=== PATIENT | female | born 1935 | race Caucasian/White ===

== ENCOUNTER 2017-01-30 01:13 | Inpatient (IN) | payer OTHER ==
[~2017-01-30] VITALS: Ht 165.1 cm; Wt 76.0 kg
--- NOTE | 2017-01-30 01:45 | NUR ---
DR COHEN AT BEDSIDE FOR MSR
--- NOTE | 2017-01-30 01:51 | NUR ---
PT BIB [facility] FROM [facility] FOR ALOC X 30 MIN CAUSTIC PREPARER, PER MEDIC PT NORMALLY AAOX4 AND AMBULATORY. 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 PER MEDIC PT IS DNR AND HAS PAPERWORK BUT IT IS ALLEGEDLY INVAILD DUE TO PTS NAME NOT BEING ON THERE. PT WAS TRANSFERED TO [facility], CHANGING INTO GOWN, PLACED ON FULL MONITORS AND SEPSIS PROTOCOL INITIATED, DR COHEN MADE AWARE OF SEPSIS CRITERIA BEING MET.
--- NOTE | 2017-01-30 01:51 | NUR ---
PER MEDIC PT HAD 2 EPISODES OF VOMITING ROUTE SERVICE REPRESENTATIVE WITH COFFEE GROUND EMESIS.
--- NOTE | 2017-01-30 01:55 | NUR ---
OLD CARROLL CATH D/C'D DUE TO THE [facility] DATE AND TIME IT WAS PLACED ALONG WITH THE AMOUNT AND COLOR OF URINE IN BAG. 2 IV SITES ESTABLISED, PT DID NOT RESPOND TO PAINFUL STIMULI DURING IV START.
--- NOTE | 2017-01-30 02:07 | NUR ---
PT OFF UNIT TO CT [facility]IA [facility], BEFORE PT LEFT, PT STARTED RESPONDING VERBALLY TO QUESTIONS BUT COULD ON REMEMBER HER NAME.
--- NOTE | 2017-01-30 02:22 | NUR ---
LAB AT BEDSIDE
[2017-01-30 02:33] LABS: BASOPHIL % 0.1 % (0-2); PLATELET COUNT 183 x10^3mcL (130-400)
--- NOTE | 2017-01-30 02:35 | NUR ---
YANIQUE Grewal FROM [facility] CALLED TO VERIFY THAT DR COHEN REC'D CRITICAL CT FINDINGS. CT STATES THAT THERE IS A MASS ARISING FROM THE LEFT-SIDED CAUDATE HEAD THAT HEASURES 1.0X1.4 CM AND 0.[address] COHEN MADE AWARE.
[2017-01-30 02:39] LABS: RED CELL DISTRIBUTION WIDTH 16.6 % (11.5-14.5)
--- NOTE | 2017-01-30 02:53 | NUR ---
PTS SON AT BEDSIDE AND UPDATED ON PT STATUS.
[2017-01-30 02:55] LABS: ALKALINE PHOSPHATASE 62 U/L (46-116); ALT/SGPT 21 U/L (14-59); AST/SGOT 30 U/L (15-37); BILIRUBIN TOTAL 0.87 mg/dL (0.20-1.00); CARBON DIOXIDE 19.3 mmol/L (21-32); CHLORIDE SERUM 104 mmol/L (98-107); CREATININE SERUM 2.4 mg/dL (0.6-1.0); GLUCOSE SERUM 110 mg/dL (74-106); POTASSIUM SERUM 3.9 mmol/L (3.5-5.1); SODIUM SERUM 137 mmol/L (136-145)
[2017-01-30 03:00] LABS: ALBUMIN 2.5 g/dL (3.4-5.0)
[2017-01-30 03:02] LABS: CK-MB 0.5 ng/mL (0-3.6)
[2017-01-30] MEDS ORDERED: AUG250L PO (03:07)
[2017-01-30] MEDS ORDERED: LIPITOR40 MG PO (03:07)
[2017-01-30] MEDS ORDERED: ALENDRONATE SOD70 M2 PO (03:07)
[2017-01-30] MEDS ORDERED: PHARMASSURE VI500 MG PO (03:08)
[2017-01-30] MEDS ORDERED: MASON NATURAL1000 IU PO (03:08)
[2017-01-30 03:21] LABS: UA SPECIFIC GRAVITY 1.015 (1.005-1.035); microscopic required? YES; urine erythrocyte 3+ (NEGATIVE)
--- NOTE | 2017-01-30 03:34 | NUR ---
PT IV ANTIBIOTICS INFUSING FOR UTI
--- NOTE | 2017-01-30 03:35 | NUR ---
[facility] WOULD LIKE TO BE CONTACTED WITH ANY UPDATES REGUARDING PT STATUS AT
--- NOTE | 2017-01-30 04:22 | NUR ---
REPORT GIVEN TO ELIZABETH TO ASSUME CARE OF PT, ELIZABETH MADE AWARE THAT THE LAST OF THE NS FLUID RESUSCITATION BOLUS'S WILL BE COMING UP WITH THE PT AND SHE WILL NEED TO RECORD THE LAST BP, ELIZABETH VERBALIZED UNDERSTANDING.
[2017-01-30 04:40] LABS: MAGNESIUM 1.7 mg/dL (1.8-2.4); PHOSPHOROUS 3.5 mg/dL (2.5-4.9)
[2017-01-30 04:47] LABS: T3 TOTAL 0.79 ng/mL
[2017-01-30 04:48] LABS: CHOLESTEROL/HDL RATIO 1.4
[2017-01-30 04:56] LABS: FREE T4 1.58 ng/dL (0.76-1.46); FREE THYROXINE INDEX 3.7 ug/dL (1.4-4.5); T4(THYROXINE) 9.4 ug/dL (4.7-13.3)
[2017-01-30 05:08] VITALS: BP 126/76
--- NOTE | 2017-01-30 05:45 | NUR ---
RECEIVED PT FROM ER VIA [facility], ACCOMPANIED BY ER NURSE. ADMITTED WITH DIAGNOSIS OF SEPSIS AND ALOC. AWAKE, CONFUSED AND DROWSY. RECEIVED PT WITH 3RD IV, NS BAG OF FLUID RESUSCITATION BOLUS, STARTED PT ON SEPSIS PROTOCOL PER ER NURSE. ABOUT 500MLS LEFT IN THE BAG, VITAL SIGNS ON ARRIVAL SHOWS TEMP. 98.0, P. 97, RESP. 19, B/P 126/52. SAT. 96% ON 02 AT 2L/MIN. IV REMAINING BALANCE INFUSED AND B/P RECHECK SHOWS 92/49, RECHECK AFTER 5MINS SHOWS 72/37. (46). 78/41 WITH MAP AT 52. PT LETHARGIC AT THIS TIME, BUT AROUSABLE. PLACED ON TELE . # 34, SR/ST ON THE MONITOR. DR CORNEJO NOTIFIED. DR CORNEJO AT PT,S BEDSIDE ASSESSING PT. CARROLL CATH INTACT, DRAINING CABRAL RED COLOR URINE, NO BLOOD CLOTS NOTED. PRESSURE ULCER TO SACRAL AREA NOTED, PICTURE TAKEN AND DOCUMENTED. PT DENIES PAIN OR ANY DISCOMFORT AT THIS TIME. SCDS APPLIED TO BLE. CALL LIGHT WITHIN REACH. WILL CONTINUE TO MONITOR.
--- NOTE | 2017-01-30 06:05 | NUR ---
RECEIVED PT VIA RTULARE. PT IS NONVERBAL, OPENS EYES TO VERBAL/TACTILE STIMULUS. PT FOLLOWS COMMANDS BY SQUEEZING HANDS BILATERALLY, UNABLE TO MAKE NEEDS KNOWN. PT IS ON 2L NC, LABORED BREATHING NOTED, SYMMETRICAL CHEST EXPANSION. S1/S2 HEART TONES DISTANT ON AUSCULTATION, NO S/S OF CHEST PAIN NOTED. NO EDEMA NOTED, CAP REFILL IMMEDIATE, PULSES MODERATE BUE/BLE, NO EDEMA NOTED. ABDOMEN SOFT/ROUND, NO BM NOTED. F/C IN PLACE DRAINING TO GRAVITY, CABRAL RED URINE NOTED. NO VAGINAL DISCHARGE NOTED. SKIN WARM/DRY, IV IN PLACE TO BUE BILATERALLY, NS INFUSING AT NS AT 150 ML/HR. SMALL PRESSURE ULCER TO SACRUM NOTED. WILL MONITOR PT CLOSELY.
--- NOTE | 2017-01-30 06:12 | NUR ---
RECEIVED PT REPORT FROM MARKO JOHNSON. QUESTIONS AND CONCERNS ADDRESSED BEDSIDE.
--- NOTE | 2017-01-30 06:35 | NUR ---
DR. ARANGO AT BEDSIDE, QUESTIONS AND CONCERNS ADDRESSED.
--- NOTE | 2017-01-30 06:44 | NUR ---
PT STARTED ON LEVOPHED AT 2 MCG/MIN. WILL MONITOR CLOSELY.
--- NOTE | 2017-01-30 07:10 | NUR ---
RECEIVED REPORT FROM [facility] SHIFT MARKO SABILLON. ALL QUESTIONS AND CONCERNS ADDRESSED AT THIS TIME. WILL ASSUME ALL CARE.
--- NOTE | 2017-01-30 07:30 | NUR ---
PT IS SLEEPING BUT EASILY AROUSABLE TO VERBAL STIMULI AND OPEN EYES TO VERBAL STIMULI, SPEECH IS GARBLED BUT PT IS ABLE TO FOLLOW COMMANDS. PT IS ORIENTED TO SELF AND PLACE. PT BUL/BLL DIM. PT ON 2L NC. PT ABD IS SOFT, FLAT, SYMMETRICAL AND NONTENDER TO PALPATION. PT HAS CARROLL CATH IN PLACE DRAINING TO GRAVITY CABRAL RED URINE, BLOOD NOTED, NO VAGINAL DISCHARGE NOTED. PT HAS TRACE EDEMA TO BLE, SCDS IN PLACE, ALL PULSES PALPABLE AND STRONG. PT ON EXTENSION FORESTER AND WITHIN CLOSE VIEW OF NURSES STATION. WILL CONTINUE TO MONITOR PT AT THIS TIME.
[2017-01-30 07:59] VITALS: BP 99/61
--- NOTE | 2017-01-30 08:42 | NUR ---
AT BEDSIDE. UPDATES PROVIDED.
--- NOTE | 2017-01-30 09:50 | NUR ---
PATIENT'S DAUGHTER, MYSELF AND DR ARANGO AT BEDSIDE. DR ARANGO SPOKE WITH YEMI LAWSON REGARDING POC AND CODE STATUS. A "POLST" WAS INITIATED LAST MONTH (12/2016) AT [facility] HOWEVER A PATIENT NAME WAS NOT INDICATED ON THE FORM SUPPLIED TO [facility]. DR ARANGO REVIEWED CODE STATUS AT THIS TIME AND FAMILY HAS DECIDED TO MAKE PATIENT A FULL DNR- INCLUDING NO PRESSORS. PRIMARY RN TEDDY MADE AWARE. DNR FORM COMPLETED AND PLACED IN CHART.
[2017-01-30 13:03] VITALS: BP 98/54
--- NOTE | 2017-01-30 13:15 | NUR ---
Initial Nutrition Assessment Dx: Sepsis PMHx: HTN, HLD, Right sacral pressure ulcer PSHx: Surgical scar indicative of R. Total hip Labs: (01/30) BH, BUN:63H, Cr:2.4H, Alb:2.5L, Ca:8L, HDL:714H, Lipase:53L, M.7L, A1c:5.9H, Lactic acid:2.3H, WBC:15.5H Meds: Colace, Lactinex, Levophed, Mg sulfate, Zofran Diet: Mechanical soft Reg PO Intake:No intake recorded Ht:65 in, 5'5" Wt: 168#,76.4kg BMI: 28kg/m2 (overweight) IBW: 125#,57kg %IBW: 134% UBW:155-160# per pt's daughter Age:81 y/o female Food Allergies:NKFA Skin: stage III sacral pressure area. Lance:13 Edema:trace to BLE GI: bowel sounds active Last BM: no BM noted Pt admitted with severe sepsis secondary to UTI and metabolic encephalopathy with acute dementia exacerbation secondary to sepsis. CT of the head without contrast showed a partiallu calcified nodule arising from the left sided caudate head, per H&P. Per progress note 01/30, pt is A&) x3 with no c/o pain at this time and pt is aware that she is in the hospital for IV antibiotics for her UTI. Pt's daughter was contacted and per daughter, pt does not want chest compressions, artifical ventilation or tube feeding. Per RN, pt was just advanced to PO diet due to improved mentation. During visit, observed pt laying in bed with daughter at bedside. Pt is more alert and was happy to be advanced to PO diet and had no c/o N/V/D/C. Spoke to Dr. Kemp about adding MVI, Vit C and Zinc to help with wound healing and he is agreeable with recommendations. Problem with: N:No V:No D: No C:No Problems with: Chewing: yes, pt states she has trouble chewing foods due to dentures Swallowing: No Current appetite: pt was just advanced to PO diet this afternoon, reports to being hungry. Recent wt change:+8# %wt change:-5% Vitamin/Supplement use:protein supplement but cannot recall the name Special diet at home: Regular mechanical soft Physical activity: No Education: Provided verbal diet education to both pt and daughter on the importance of adding MVI, Vit C and Zinc to help promote wound healing to pts stage III sacral pressure ulcer. Both pt and daughter were receptive to education and recommendations. Estimated Nutritional Needs Based on ideal body weight 57kg Energy: 1710-1995kcal/d (30-35kcal/kg for sepsis and stage III pressure ulcer) Protein: 85-114 g/d (1.5-2.0g/kg for sepsis and stage III pressure ulcer) Fluid: 1710-1995ml/d (30-35kcal/ml) or per doctor Nutrition Diagnosis 1. Increased nutrient needs related to increased metabolic demands as evidenced by elevated WBC:15.5, Lactic acid: 2.3 and pt with sepsis. 2. Increased nutrient needs related to altered skin integrity as eviedenced by Stage III sacral pressure ulcer. Intervention 1.Recommend Theragran, Vit C 500mg BID and Zinc Sulfate 220mg 1x/day for wound healing. 2. Recommend continue with current diet order of mechanical soft diet Monitor/Evaluate Goal: PO intake to meet >75% est needs and wound healing. Monitor: PO intake, GI function and skin integrity F/U in 3-5 days as moderate risk:02/02-
--- NOTE | 2017-01-30 13:17 | NUR ---
1.Recommend Theragran, Vit C 500mg BID and Zinc Sulfate 220mg 1x/day for wound healing. 2. Recommend continue with current diet order of mechanical soft diet
--- NOTE | 2017-01-30 14:39 | NUR ---
REPORT GIVEN TO [facility]ST RN ELICEO, ALL QUESTIONS AND CONCERNS ADDRESSED AT THIS TIME. PT TO GO TO ROOM 207B. WILL ENDORSE ALL CARE TO ELICEO UPON ARRIVAL.
--- NOTE | 2017-01-30 14:53 | NUR ---
AND AT BEDSIDE FOR WOUND DEBRIDEMENT. OPTIFOAM AND THERAHONEY APPLIED AT THIS TIME. SEE PICTURES IN CHART.
--- NOTE | 2017-01-30 15:37 | NUR ---
RECEIVED PATIENT FROM ICU. PLACED ON TELE #34. CALL LIGHT WITHIN REACH WITH BED ALARM IN PLACE.
[2017-01-30 15:49] VITALS: BP 100/51
--- NOTE | 2017-01-30 16:00 | NUR ---
PATIENT ALERT, ORIENTED SELF AND PLACE. S/P PF DEBRIDMENT OF RT SACRAL PRESSURE ULCER TODAY. DENIED PAIN. TELE#34: SR; HR = 84. B/P = 100/51. MAP =66. O2 SAT 98% ON 3L/MIN VIA N/C. CARROLL PATENT WITH JUAN PABLO , CLOUDY URINE. 120CC OF URINE OUTPUT MEASURED. DRSG TO RT SACRAL AREA INTACT. IVF OF NS 150CC/HR INFUSING WELL TO RAC. IVHL'S TO LAC. BOTH IV SITE CLEAN. CALL LIGHT IN REACH. CONTINUE MONITOR.
[2017-01-30 17:20] VITALS: BP 100/51
--- NOTE | 2017-01-30 18:18 | NUR ---
ALERT, ORIENTED TO PERSON AND PLACE. ABLE TO FEED SELF DINNER. TOLERATED SOFT DIET WELL. NO N/V. DENIED PAIN. IVF OF NS 150CC/HR CONTINUE. ENDORSED CARE TO [facility] NURSE.
--- NOTE | 2017-01-30 19:50 | NUR ---
REC'D FROM DAY NURSE. PT RESTING IN BED. TURNED TO L SIDE. AAOX4, SPEECH CLEAR, FOLLOWS COMMANDS. SOMETIMES SLOW TO RESPOND. PERRLA. ON TELE 34. DENIES CP, DIZZINESS, OR PALPITATIONS. DENIES RESP DISTRESS OR SOB. BREATHING EVEN/UNLABORED ON 3L O2 VIA NC, SPO2 96%. TRACE EDEMA TO BLE. TURNED TO L SIDE AND BLE ELEVATED WITH PILLOWS. DENIES ABD PAIN, TENDERNESS, OR N/V. BOWEL SOUNDS ACTIVE. STATES SHE DOES NOT KNOW THE LAST TIME SHE HAD A BM. CARROLL IN PLACE DRAINING URINE TO GRAVITY. GEN WEAKNESS WITH GREATER WEAKNESS TO BLE. R SACRAL ULCER S/P DEBRIDEMENT. WILL TURN Q2HR. MODERATE SANGUINEOUS DRAINAGE, DRESSING CHANGED. DENIES PAIN OR DISCOMFORT AT THIS TIME. IV TO FRA PATENT AND INFUSING. IV TO LAC FLUSHED AND PATENT, SALINE LOCKED. SITES WNL. CALL LIGHT WITHIN REACH, BED AT LOWEST POSITON, BED ALARM ON. WILL CONTINUE TO MONITOR.
--- NOTE | 2017-01-30 21:52 | NUR ---
DR. JENSEN MADE AWARE OF POSITIVE BLOOD CULTURE AND MG 1.7
[2017-01-30 21:59] VITALS: BP 100/52
--- NOTE | 2017-01-30 23:00 | NUR ---
PT RESTING IN BED. WOKEN UP TO CHANGE POSITION. TURNED TO R SIDE. MADE COMFORTABLE IN BED. NO COMPLAINTS AT THIS TIME. CALL LIGHT WITHIN REACH, BED AT LOWEST POSITION, BED ALARM ON. WILL CONTINUE TO MONITOR.
--- NOTE | 2017-01-31 03:43 | NUR ---
PT RESTING IN BED WITH EYES CLOSED. NO SIGNS OF DISTRESS NOTED. BREATHING EVEN/UNLABORED ON 3L O2 VIA NC. CALL LIGHT WITHIN REACH, BED AT LOWEST POSITION. WILL CONTINUE TO MONITOR.
[2017-01-31 06:31] VITALS: BP 104/52
--- NOTE | 2017-01-31 06:48 | NUR ---
PT RESTING IN BED. NO COMPLAINTS AT THIS TIME. PT AAOX4. REPOSITIONED. DRESSING TO R SACRUM CDI. NO BM TONIGHT. CARROLL CARE COMPLETED. VSS. CALL LIGHT WITHIN REACH, BED AT LOWEST POSITION, BED ALARM ON. WILL CONTINUE TO MONITOR.
[2017-01-31 06:50] LABS: PLATELET COUNT 134 x10^3mcL (130-400)
[2017-01-31 06:53] LABS: BASOPHIL % 0 % (0-2); RED CELL DISTRIBUTION WIDTH 16.6 % (11.5-14.5)
[2017-01-31 07:21] LABS: CALCIUM 7.4 mg/dL (8.5-10.1); CARBON DIOXIDE 20.1 mmol/L (21-32); CHLORIDE SERUM 112 mmol/L (98-107); CREATININE SERUM 0.7 mg/dL (0.6-1.0); GLUCOSE SERUM 92 mg/dL (74-106); MAGNESIUM 2.5 mg/dL (1.8-2.4); PHOSPHOROUS 3.1 mg/dL (2.5-4.9); POTASSIUM SERUM 3.5 mmol/L (3.5-5.1); SODIUM SERUM 142 mmol/L (136-145)
--- NOTE | 2017-01-31 08:00 | NUR ---
ALERT/AWAKE. ORIENTED TO PERSON AND PLACE. ABLE TO MADE NEEDS KNOWN. BREATHING SOUND DIMINISED BERKLEY. O2 SAT 95% ON 3L VIA N/C. NO SOB. TELE#34 = SR; HR = 75. DRSG TO SACRAL AREA INTACT. C/O MILD PAIN ON SACRAL AREA ON , REFUSED PAIN MEDS. IVF OF NS 60CC/HR TO RFA PER ORDER. IVHL'D TO LAC. GENERAL WEAKNESS, BED BOUND. CARROLL CATH PATENT WITH YELLOW CLOUDY URINE OUTPUT. CALL LIGHT IN REACH.
--- NOTE | 2017-01-31 08:15 | NUR ---
RESIDENTS MADE MORING ROUND.
[2017-01-31 09:59] VITALS: BP 108/58
[2017-01-31 13:35] VITALS: BP 107/59
--- NOTE | 2017-01-31 15:00 | NUR ---
REPORT FROM [facility] - PATIENT'S WOUND CULT (+) OF MRSA. DR. ARANGO CALLED AND NOTIFIED. CONTACT ISOLATION APPLIED.
[2017-01-31 17:13] VITALS: BP 107/59
--- NOTE | 2017-01-31 18:14 | NUR ---
CONDITION STABLE. IVF OF NS 60CC/HR PER ORDER. DRSG TO SACRAL AREA DRY AND INTACT. TOLERATED DIET WELL. CARROLL CATH PATENT WITH 725CC OF YELLOW CLOUDY URINE COLLECTED. NO BM THIS SHIFT. [facility].
--- NOTE | 2017-01-31 19:46 | NUR ---
SHIFT REASSESSMENT DONE.PATIENT ALERT ORIENTED X2.NEEDS ANTICIPATED.O2 AT 3 LITERS.GEN WEAKNESS.ASSIST WITH ADLS.NS AT 60 CC/ HOUR RFA,LAC HEPLOCK.TELE 34 SR.PRESSURE ULCERS R SACRAL,ISOLATION FOR MRSA WOUND.PICTURE IN CHART.CARROLL INTACT.DENIES PAIN.CALL LIGHT IN REACH.
[2017-01-31 21:45] VITALS: BP 110/65
--- NOTE | 2017-02-01 03:31 | NUR ---
DC TELE 34,NOW MED SURG.PATIENT ALSO REMAINS A DNR STATUS.
--- NOTE | 2017-02-01 04:08 | NUR ---
PATIENT KIND OF ANXIOUS,GIVEN NORCO AT THIS TIME,HAS TO MIX WITH APPLE SAUCE.
[2017-02-01 04:40] VITALS: Ht 165.1 cm; Wt 76.0 kg
[2017-02-01 04:48] VITALS: BP 121/73
--- NOTE | 2017-02-01 06:16 | NUR ---
I AND O MEASURED.AM CARE DONE.NS AT 60 CC/ HOUR.WILL ENDORSE TO NEXT SHIFT.
[2017-02-01 06:25] LABS: CALCIUM 7.7 mg/dL (8.5-10.1); CHLORIDE SERUM 112 mmol/L (98-107); CREATININE SERUM 0.6 mg/dL (0.6-1.0); GLUCOSE SERUM 101 mg/dL (74-106); MAGNESIUM 2.2 mg/dL (1.8-2.4); PHOSPHOROUS 2.8 mg/dL (2.5-4.9); POTASSIUM SERUM 3.7 mmol/L (3.5-5.1); SODIUM SERUM 142 mmol/L (136-145)
[2017-02-01 06:50] LABS: BASOPHIL % 0.3 % (0-2); PLATELET COUNT 134 x10^3mcL (130-400)
[2017-02-01 06:54] LABS: RED CELL DISTRIBUTION WIDTH 16.7 % (11.5-14.5)
--- NOTE | 2017-02-01 07:30 | NUR ---
WOUND CARE NURSE IN ROOM TO ASSESS SACRAL WOUND, CHANGED DRESSING WITH THERAHONEY AND OPTIFOAM.
--- NOTE | 2017-02-01 07:59 | NUR ---
A+OX2, CONFUSED, DENIES PAIN, NAUSEA, SOB, AND HEADACHE, PULSES MODERATE AND EQUAL BERKLEY, TRACE EDEMA , SCDS ON, 3 L NS, BOWEL SOUNDS ACTIVE, CARROLL CATH PRESENT, GENERALIZED WEAKNESS, ON AIR MATTRESS, TURN Q2, SACRAL DECUB WOUND, DRESSING CDI, IV IN RFA WITH NS @ 60 ML/HR, IV IN LAC SALINE LOCKED, SITES WNL, RBC 3.35, HGB 9.6, HCT 30, CL 112.
--- NOTE | 2017-02-01 09:13 | NUR ---
WOUND CARE EVALUATION NOTE REASON FOR EVALUATION: SACRAL WOUND COMPLETE SKIN ASSESSMENT DONE TO THIS 81 Y/O FEMALE FROM [facility] [place] [facility]: ALTERED MENTAL STATUS AND S/P SACRAL PRESSURE ULCER DEBRIDEMENT, PAST MEDICAL HX INCLUDES HTN,HLD AND RIGHT SACRAL PRESSURE ULCER. ABOVE INFORMATION OBTATINED FROM ADMISSION H&P AND PT. LAB ARE WBC 8.7, H/H 9.6/30, GLUCOSE 101, PT/INR 13.1/1.2 AND PTT 28.7. MEDICATIONS INCLUDES: CEFTRIAXONE, PIPERACILLIN, TAMSALOSIN HCL AND ZINC SULFATE. PT IS ALERT ABLE TO ANSWER SIMPLE QUESTIONS AND ABLE TO FOLLOW DIRECTIONS, GENERNAL WEAKNESS NOTICE UNABLE TO TURN AND REPOSITION BY HERSELH, REQUIRES 2 PERSONS ASSIST IN TURNING. SKIN WARM AND DRY WITH LOOSE SKIN TUGOR. BLE NO HAIR GROWTH WITH DORSAL PEDAL PULSES PRESENT AND NORMAL, CAPILLARY REFILL < 3 SEC. PLAN OF CARE DISCUSS WITH PT AND PRIMARY RN. PT. VERBALIZES UNDERSTAND. INTEGUMENTARY: RIGHT AND LEFT BUTTUCKS BLANCHABLE REDNESS RIGHT SACRAL STAGE III PRESSUR ULCER 1X1.5X0.3 CM 100% GRANULATING TISSUE, PW PALE PINK 2X2CM, MOIST TO TOUCH RECOMMENDATIONS: -APPLY HYDRAGUARD TO BUTTUCKS AND OPTIC FORM DRESSING QD AND PRN IF SOLING -CLEANSE RIGHT SACRAL PRESSURE ULCER WITH NS. APPLY THERAHONEY WITH ADAPTIC DRESSING AND COVER WITH DRESSING AND OPTIFORM QD AND PRN IF SOILING -KEEP SKIN DRY AND CLEAN AT ALL TIME -KEEP HOB ELEVATED AT 30 DEGREE -TURN AND REPOSITION Q2H OFFLOAD SACRAL AREA EXCEPT MEALS TIME -ASSESS AND MONITOR BLANCHABLE REDNESS BUTTUCKS AREA DURING TURING AND NOTIFY PCP OF ANY ABNORNAL CHANGES. -OFF LOAD BILARTERAL HEELS BY PLACING PILLOWS UNDER CALVES AT ALL TIME UNLESS OTHERWISE CONTRAINDICATED. -PRESSURE REDISTRIBUTION SURFACE THERAPY -DIETITIAN CONSULT RECOMMENDATIONS DISCUSSED WITH PRIMARY RN WILL FOLLOW UP PT 7-10 DAYS AND PRN. PLEASE CONTACT WOUND CARE NURSE FOR ANY CONCERNS AND CHANGE IN SKIN CONDITION.
--- NOTE | 2017-02-01 09:36 | NUR ---
PT RESTING IN BED, NO RESPIRATORY DISTRESS NOTED, CONFUSED, STATED SHE DOES NOT WANT ANY PAIN OR SLEEP MEDS, DENIES PAIN.
[2017-02-01 10:02] VITALS: BP 108/56
--- NOTE | 2017-02-01 10:20 | NUR ---
PT RESTING IN BED, NO RESPIRATORY DISTRESS NOTED, DENIES PAIN.
--- NOTE | 2017-02-01 11:53 | NUR ---
PT RESTING IN BED, NO RESPIRATORY DISTRESS NOTED, DENIES PAIN.
--- NOTE | 2017-02-01 13:09 | NUR ---
PT RESTING IN BED, NO RESPIRATORY DISTRESS NOTED, STATES SHE IS "HAVING HALLUCINATIONS AND DOES NOT KNOW WHAT IS REAL," PT CONFUSED, REORIENTED TO PERSON, PLACE AND TIME, REPOSIIONED AND PULLED UP, MEAL TRAY SET UP AND PT SITTING STRAIGHT UP IN BED TO EAT, DENIES PAIN.
--- NOTE | 2017-02-01 14:31 | NUR ---
PT RESTING IN BED, CONFUSED, HAVING HALLUCINATIONS, DENIES PAIN, NO RESPIRATORY DISTRESS NOTED.
--- NOTE | 2017-02-01 15:29 | NUR ---
PT RESTING IN BED, NO RESPIRATORY DISTRESS NOTED, CONFUSED, DENIES PAIN.
--- NOTE | 2017-02-01 16:26 | NUR ---
PT PULLED UP, REPOSITIONED, CARROLL CARE DONE, LINENS AND GOWN CHANGED, OPTIFOAM DRESSING CHANGED AND REAPPLIED. NO RESPIRATORY DISTRESS NOTED, DENIES PAIN, CONFUSED.
--- NOTE | 2017-02-01 16:40 | NUR ---
PT RESTING IN BED, NO RESPIRATORY DISTRESS NOTED, DENIES PAIN, DAUGHTER AT BEDSIDE, NURSE UPDATED ON PT'S STATUS.
[2017-02-01 16:47] VITALS: BP 131/66
--- NOTE | 2017-02-01 18:15 | NUR ---
PT RESTING IN BED, ASSISTED WITH TRAY SETUP, EATING WITHOUT ASSISTANCE, NO SWALLOWING DIFFICULTIES NOTED, NO RESPIRATORY DISTRESS NOTED, DENIES PAIN.
--- NOTE | 2017-02-01 19:30 | NUR ---
AWAKE, ALERT, ORIENTED X2 TO PERSON AND PLACE. ABLE TO TELL NAME, BIRTHDATE AND STS " I'M AT [facility]" CONFUSED AT TIMES, DENIES PAIN, NAUSEA, SOB, AND HEADACHE, PULSES MODERATE AND EQUAL BERKLEY, TRACE EDEMA , SCDS ON, 3 L NS, BOWEL SOUNDS ACTIVE, CARROLL CATH PRESENT, GENERALIZED WEAKNESS, ON AIR MATTRESS, TURN Q2, SACRAL DECUB WOUND, DRESSING CDI, IV IN RFA WITH NS @ 60 ML/HR, IV IN LAC SALINE LOCKED, BOTH IV ACCESS PATENT. WILL CONTINUE TO MONITOR.
--- NOTE | 2017-02-01 20:50 | NUR ---
BEDTIME MEDS COLACE PO GIVEN. NO ASPIRATION NOTED. PATIENT STS THERE IS A BABY GIRL OVER THERE AND POINTED TO THE EDGE OF BED". REORIENTATION TO PATIENT. NO ANY DISTRESS NOTED. TURNED AND REPOSITIONED TO LEFT SIDE. WILL CONTINUE TO MONITOR.
[2017-02-01 21:45] VITALS: BP 134/84
--- NOTE | 2017-02-02 01:30 | NUR ---
RESTING WITH EYES CLOSE. KEPT HOB AT 30 DEG. IVF NS INFUSING WELL. CARROLL CATH DRAINING OUT YELLOW URINE NOTED.
--- NOTE | 2017-02-02 03:30 | NUR ---
TURNED AND REPOSITIONED TO RIGHT SIDE. NO ANY DISTRESS NOTED. CONFUSED. IVF INFUSING WELL TO LAC IV SITE.
[2017-02-02 04:45] VITALS: BP 140/80
--- NOTE | 2017-02-02 08:18 | NUR ---
PT AWAKE ALERT ABD ORIENTED X2, CONFUSED AT TIMES. MED SURG PT. EDEMA TO BLE. LUNGS SOUNDS DIMINISHED TO BLL. BOWEL TONES ACTIVE IN ALL QUADS. TURN Q2, AIRMATRESS IN PLACE. SACRAL DECUB DRESSING CDI. DENEIS PAIN. IV TO THE LAC, AND RFA, BOTH PATENT, PT IS CALM AND COOPERATIVE WITH CARE. WILL CONTINUE TO MONITOR. CALL LIGHT PLACED IN REACH.
[2017-02-02 09:57] VITALS: BP 142/82
--- NOTE | 2017-02-02 10:34 | NUR ---
PT RESTING IN BED NO SIGNS OF DISTRESS, BED ALARM ON. NO SIGNS OF DISTRESS CALL LIGHT IN REACH WILL CONTINUE TO MONTIOR.
--- NOTE | 2017-02-02 12:15 | NUR ---
DRESSING CHANGE COMPLETED SACRAL WOUND DRESSING REMOVED AND WOUND BED CLEANSED WITH SPRAY, PAT DRIES WITH CLEAN GAUZE, ADAPTIC WITH THERAHONEY PLACED OVER WOUND BED WET GAUZE PACKED IN REMAINING SPACE, AND WOUND COVERED WITH OPTIFOAM. PT REPOSITIONED IN BED AND HEELS OFFLOADED.
--- NOTE | 2017-02-02 14:24 | NUR ---
PT SITTING UP IN BED EATING LUNCH. PT FED LUNCH DUE TO FATIGUE FROM FEEDING SELF PT ABLE TO SWALLO FOOD NO SIGNS OF COUGHING OR DIFFICULTY SWALLOWING. CALL LIGHT PLACED WITHIN REACH WILL CONTINUE TO MONITOR.
[2017-02-02 18:00] VITALS: BP 135/83
--- NOTE | 2017-02-02 19:19 | NUR ---
PT STABLE CARE ENDORCED TO BOTTLE SORTER NURSE.
--- NOTE | 2017-02-02 19:30 | NUR ---
AWAKE, ALERT, ORIENTED X2 TO PERSON AND PLACE, PLEASANT. ABLE TO HOLD THE CUP AND DRINK WATER WITHOUT COUGHING NOTED. DENIES PAIN, NAUSEA. NO SOB AT THIS TIME. PULSES MODERATE AND EQUAL BERKLEY, TRACE EDEMA , SCDS ON, 3 L NS, BOWEL SOUNDS ACTIVE, CARROLL CATH PRESENT, GENERALIZED WEAKNESS, ON AIR MATTRESS, TURN Q2, SACRAL DECUB WOUND, DRESSING CDI, IV IN LAC WITH NS @ 60 ML/HR PATENT. CONTACT ISOLATION MAINTAINED.
[2017-02-02 21:02] VITALS: BP 133/81
--- NOTE | 2017-02-02 23:30 | NUR ---
IV TO LAC LEAKING, NO SIGNS OF INFLAMATIONS NOTED. IV CATHETER REMOVED. NEW IV CATHETER#22 INSERTED TO RFA WITH GOOD BLD RETURNED AND FLUSHED WELL. IVF NS CONTINUED AT 60ML/HR. REPOSTIONED AND KEPT HOB AT 30DEG.
--- NOTE | 2017-02-03 02:00 | NUR ---
PARTIAL BEDBATH DONE, CAHTETER CARE PROVIDED. REPOSITIONED.
--- NOTE | 2017-02-03 04:00 | NUR ---
RESTING WITH EYES CLOSE, EASILY TO AROUSE. TURNED TO LEFT SIDE.
[2017-02-03 05:34] VITALS: BP 145/71
[2017-02-03 06:20] LABS: BASOPHIL % 0.5 % (0-2); PLATELET COUNT 188 x10^3mcL (130-400)
[2017-02-03 06:35] LABS: RED CELL DISTRIBUTION WIDTH 15.7 % (11.5-14.5)
[2017-02-03 06:54] LABS: CARBON DIOXIDE 29.3 mmol/L (21-32); CHLORIDE SERUM 106 mmol/L (98-107); CREATININE SERUM 0.6 mg/dL (0.6-1.0); GLUCOSE SERUM 90 mg/dL (74-106); POTASSIUM SERUM 4.1 mmol/L (3.5-5.1); SODIUM SERUM 142 mmol/L (136-145)
[2017-02-03 06:55] LABS: CALCIUM 8.4 mg/dL (8.5-10.1)
--- NOTE | 2017-02-03 08:00 | NUR ---
PT IS AWAKE ALERT AND ORIENTED X4 ABLE TO MAKE NEEDS KNOWN, CONFUSED AT TIMES. IV TO THE RFA PATENT AND INTACT. LUNGS DIMINISHED TO BLL, 02 IN USE. PT DENIES SOB OR CP AT THIS TIME, EVEN UNLABORED RESPIRATIONS. AIR MATRESS IN PLACE. DRESSING TO SACRAL AREA CDI. PT IS CALM AND COOPERATIVE WITH CARE. CALL LIGHT IN REACH WILL CONTINUE TO MONITOR.
[2017-02-03 09:37] VITALS: BP 114/55
--- NOTE | 2017-02-03 09:45 | NUR ---
PATIENT IS RESTING IN ROOM WATCHING TELEVISION. PATIENT IS SATING 100% ON RA. CHEST RISE IS EVEN, RR IS 20. CALL LIGHT IS WITHIN REACH, BED IS LOCKED AND IN LOW POSITION, SIDE RAILS ARE UP, BED ALARM IS ON.
[2017-02-03 10:00] VITALS: BP 108/56
--- NOTE | 2017-02-03 13:19 | NUR ---
PATIENT HAD LARGE SOFT, BROWN, BM. AFTER CLEANING PATIENT, OLD DRESSINGS WERE REMOVED AND DISCARDED. SITE WAS CLEANSED AND PATTED DRY, THERAHONEY WAS APPLIED TO ADAPTIC DRESSING AND INSERTED WITHIN WOUND BED AND COVERED WITH CLEAN DRESSING. PATIENT TOLERATED WOUND DRESSING, AND IS NO APPARENT DISTRESS. CALL LIGHT IS WITHIN REACH, SIDE RAILS RAISED, AND BED ALARM IS ON.
--- NOTE | 2017-02-03 13:41 | NUR ---
PT RESTING IN BED NO SIGNS OF DISTRESS CALL LIGHT IN REACH WILL CONTINUE TO MONITOR.
--- NOTE | 2017-02-03 15:32 | NUR ---
PATIENT RESTING, IN NO APPARENT DISTRESS, CHEST RISE EQUAL, RR 16. SIDE RAILS ARE UP, CALL LIGHT IS WITHIN REACH, IV IS INFUSING AT A RATE OF 60 ML/HR IN RFA. SITE IS ABSENT OF SWELLING AND REDNESS.
[2017-02-03 17:00] VITALS: BP 116/73
--- NOTE | 2017-02-03 18:28 | NUR ---
PATIENT IS DOING CROSSWORD PUZZLE, PATIENT IS IN NO APPARENT DISTRESS, CALL LIGHT IS WITHIN REACH, SIDE RAILS ARE UP AND BED ALARM IS ON.
--- NOTE | 2017-02-03 19:30 | NUR ---
NOTED HAD LARGE BM, PERICARE PROVIDED, NEW CHUX CHANGED. OLD SACRAL DRSG REMOVED, THERAHONEY APPLIED WITH OPTIFOAM DRSG. TURNED AND REPOSITIONED TO LEFT SIDE. NO ANY DISTRESS NOTED. DENIES PAIN. PLEASANT. ABLE TO MAKE NEEDS KNOWN AND FOLLOW COMMANDS. IVF NS TO RFA INFUSING WELL AT 60ML/HR. ON AIR MATTRESS, HEEL OFFLOADED. CONTACT ISOLATION MAINTAINED. CALL LIGHT PLACED WITHIN EASY REACH. SIDERAILS UP X2.
[2017-02-03 21:09] VITALS: BP 107/54
--- NOTE | 2017-02-03 21:30 | NUR ---
RESTING WITH EYES CLOSE. REPOSITIONED.
[2017-02-04 06:04] VITALS: BP 128/65
--- NOTE | 2017-02-04 06:28 | NUR ---
NO ANY DISTRES THROUGHOUT SHIFT. HAD A PERIOD OF HALLUCIATION THIS MORNING. ABLE TO MAKE NEEDS KNOW AND FOLLOW COMMANDS, PLEASANT. HAD LARGE BM X1 LAST NIGHT. ALL DUE MEDS GIVEN. LEFT SACRAL ULCER DRSG CHANGED, WOUND PHOTO TAKEN, PLEASE SEE FROM CHART. DENIES PAIN.
[2017-02-04 07:16] LABS: BASOPHIL % 0.3 % (0-2); PLATELET COUNT 212 x10^3mcL (130-400); RED CELL DISTRIBUTION WIDTH 16.2 % (11.5-14.5)
--- NOTE | 2017-02-04 07:45 | NUR ---
AT BEDSIDE, PATIENT IS ALERT AND ORIENTED X 3; ABLE TO FOLLOW COMMANDS AND MAKE MOST NEEDS KNOWN; PROVIDED SELF ORAL CARE PATIENT DENIES CHEST PAIN LUNG SOUNDS DIMINISHED UPON EXPIRATION BILATERALLY; BREATHING WAS UNLABORED AND EVEN THROUGHOUT; 02 SATURATION AT 94% ON 2L NC; PERIPHERAL PULSES ARE PALPABLE, HOWEVER TRACE EDEMA BILATERALLY LOWER EXTREMETIES, SCD IN PLACE BOWEL SOUNDS ACTIVE THROUGHOUT, DENIES GI DISCOMFORT, DENIES NAUSEA AND VOMITING; CARROLL IN PLACE, DRAINING CLEAR YELLOW TO GRAVITY WOUND TO RIGHT SACRAL WITH OPTIFOAM DRESSING, CLEAN DRY AND INTACT AIR MATTRESS IN PLACE, TURNING EVERY 2 HOURS IV ACCESS TO RIGHT FOREARM, RUNNING NS AT 60MLS/HR; SITE WNL; DENIES ANY PAIN AT THIS TIME; CALL LIGHT WITHIN REACH PATIENT REPOSITIONED
[2017-02-04 09:52] VITALS: BP 121/65
--- NOTE | 2017-02-04 10:45 | NUR ---
PATIENT REPOSITIONED TO LEFT SIDE.
[2017-02-04 12:39] VITALS: BP 141/73
--- NOTE | 2017-02-04 13:00 | NUR ---
PATIENT ATE LUNCH MEAL WELL, 100% INTAKE. REPOSITIONED.
--- NOTE | 2017-02-04 15:05 | NUR ---
Follow-up Nutrition Assessment Dx:Sepsis Labs: (02/04) 10.6/32L(02/03) B, Ca:8.4L Meds: Colace, Dulcolax, Lactinex, NS IV, Theragran, Vit C, Zinc sulfate, Zofran Diet: Mechanical soft chopped PO intake: (01/30) D:85% (01/31)B:100%, L:90%, D:100% (02/01) B:50%, L:90% (02/02) B:60% (02/03) B:90%, L:90% Weights: (01/30) 168#, (01/31)168# Skin: sacral wound stage III s/p debridement Edema: trace to BLE Last BM: 02/03 Pt admitted with septick shock secondary to UTI and bactermia. Per progress note 02/03, pt with no c/o abdominal pain but reports last BM 3 days, ago. During visit, observed pt laying in bed with no family at bedside and lunch tray with >75% meal consumend. Per pt, no c/o N/V/D/C with 1 large BM last night. Estimated Nutritional Needs unchanged from prior assessment:IBW:57kg Energy: 1710-1995kcal/day (30-35kcal/kg for stage III pressure ulcer) Protein: 85-114g/day (1.5-2.0g/kg for stage III pressure ulcer) Fluid: 1710-1995ml/day (30-35ml/kcal) or per doctor Nutrition Diagnosis 1. Increased nutrient needs related to increased metabolic demands as evidenced by elevated WBC:15.5, Lactic acid:2.3 and pt with sepsis (improved) 2. Increased nutrient needs related to altered skin integrity as evidenced by Stage III sacral pressure ulcer (continues but inproving) Intervention 1. Recommend continue with current diet of mechanical soft chopped. 2. Recommend continue with Theragra, Vit C 500mg BID and Zinc sulfate 220mg daily. 3. Recommend adjust BM regimen PRN due to pt with constipation. Monitor/Evaluate Previous goal: PO intake to meet >75% est needs and wound healing (met) Goal: PO intake at least 75% of estimated needs and continued wound healing Monitor: PO intake, Labs, GI function, skin integrity F/U in 7 days as low risk 10/2
--- NOTE | 2017-02-04 15:06 | NUR ---
1. Recommend continue with current diet of mechanical soft chopped. 2. Recommend continue with Theragra, Vit C 500mg BID and Zinc sulfate 220mg daily.
[2017-02-04 17:08] VITALS: BP 130/68
--- NOTE | 2017-02-04 17:10 | NUR ---
WOUND CARE AND DRESSING CHANGE DONE TO RT SACRAL ULCER. OPEN BUT NO ACTIVE BLEEDING/DRAINAGE NOTED TO SITE. CLEANSED AND THERAHONEY APPLIED WITH OPTIFOAM. PATIENT TOLERATED WELL. REPOSITIONED.
--- NOTE | 2017-02-04 19:44 | NUR ---
RECEIVED PATIENT IN BED AWAK EWITH PERIOD OF CONFUSION ,ABLE TO MAKE NEEDS KNOWN. NO SIGN OF ACUTE DISTRESS NOTED, ON O2 AT 3L VIA NC SATTING AT 97%. TRACED EDEMA NOTED TO BLE MORE ON RT SIDE. IV TO RFA INTACT AND INFUSING WELL. WILL CONTINUE TO MONITOR. BED TO LOWEST POSITION., BED ALARM ON.
[2017-02-04 21:43] VITALS: BP 106/53
--- NOTE | 2017-02-05 00:53 | NUR ---
SLEEPING THIS TIME NO SIGN OF DISTRESS NOTED, ON O2 AT 2L VIA NC.
--- NOTE | 2017-02-05 05:14 | NUR ---
SLEPT FAIRLY NO SIGN OF PAIN AND DISCOMFORT NOTED THE ENTIRE SHIFT. ALL NEEDS ATTENDED.
[2017-02-05 05:56] VITALS: BP 146/76
[2017-02-05 06:42] LABS: BASOPHIL % 0.3 % (0-2); PLATELET COUNT 233 x10^3mcL (130-400)
[2017-02-05 06:55] LABS: CALCIUM 8.7 mg/dL (8.5-10.1); CARBON DIOXIDE 23.8 mmol/L (21-32); CHLORIDE SERUM 105 mmol/L (98-107); CREATININE SERUM 0.7 mg/dL (0.6-1.0); GLUCOSE SERUM 85 mg/dL (74-106); PHOSPHOROUS 3.4 mg/dL (2.5-4.9); POTASSIUM SERUM 4.3 mmol/L (3.5-5.1); SODIUM SERUM 138 mmol/L (136-145)
--- NOTE | 2017-02-05 07:25 | NUR ---
RECEIVED THE PATIENT AWAKE AND ORIENTED TO PERSON, PLACE AND WITH EPISODES OF FORGETFULNESS. PATIENT DENIED SHORTNESS OF BREATH OR PAIN. IVF NS VIA H/L TO RFA. F/C TO GRAVITY DRAINING YELLOW URINE. CALL LIGHT WITHIN REACH. SIDE RAILS UP X3. THE PATIENT WAS ON AIR MATTRESS. BED WAS AT LOWEST POSITION AND ALARM WAS ON. 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
[2017-02-05 08:51] LABS: RED CELL DISTRIBUTION WIDTH 16.2 % (11.5-14.5)
--- NOTE | 2017-02-05 08:55 | NUR ---
DR. LEIGH AND THE TEAM WERE MAKING ROUND TO SEE THE PATIENT. THE CARE PLAN WAS UPDATED TO THE PATIENT AND THE PATIENT VERBALIZED UNDERSTANDING.
[2017-02-05 09:44] VITALS: BP 108/57
--- NOTE | 2017-02-05 10:58 | NUR ---
THE PATIENT STATED SHE HAD SOME HALUCINATION WITH DR. ARANGO -RESIDENT WHILE HE WAS AT BEDSIDE ASSESSING THE PATIENT. DOCTOR ORDERED SEROQUEL 25MG PO FOR THE PATIENT. WILL CARRY OUT THE ORDER.
--- NOTE | 2017-02-05 11:05 | NUR ---
DR. BUSTAMANTE WAS IN TO SEE THE PATIENT.
--- NOTE | 2017-02-05 14:20 | NUR ---
LATE ENTRY: THE OLD DRESSING AT SACRAL WOUND WAS REMOVED. THE WOUND WAS CLEANSED WITH WOUND CLEANSER AND THERAHONEY WAS APPLIED TO THE WOUND BEFORE NEW OPTIFOAM WAS APPLIED. THE PATIENT TOLERATED THE PROCEDURE. THE PATIENT WAS POSITIONED COMFORTABLY IN BED AFTER THE DRESSING WAS CHANGED.
[2017-02-05 17:34] VITALS: BP 140/78
--- NOTE | 2017-02-05 18:44 | NUR ---
THE CONTACT ISOLATION WAS REMOVED PER DOCTOR'S ORDER. THE PATIENT WAS RESTING IN BED WITHOUT DISTRESS NOTED.
--- NOTE | 2017-02-05 19:30 | NUR ---
PT ALERT/ORIENTED X3. PT HAS EPISODES OF FORGETFULNESS. SEE SKIN ASSESSMENT FOR SKIN INTEGRITY. PT HAD A LARGE FORMED BROWN STOOL. CLEANED PT AND REPOSITIONED PT SUPINE POSITION. PT ASSESSED SEE NSG FLOWSHEET. SAFETY REINFORCED; SEE EDUCAT SHEET. WILL CONTINUE TO MONITOR.
[2017-02-05 20:50] VITALS: BP 113/56
--- NOTE | 2017-02-05 22:30 | NUR ---
PT SLEEPING.NO DISTRESS NOTED. WILL CONTINUE TO MONITOR.
--- NOTE | 2017-02-06 02:26 | NUR ---
REPOSTIONED PT SUPINE. WILL CONTINUE TO MONITOR.
[2017-02-06 04:32] VITALS: BP 140/79
--- NOTE | 2017-02-06 04:42 | NUR ---
REPOSITIONED PT ON THE RT SIDE. PT SLEPT IN LONG INTERVALS THROUGHOUT THE NIGHT. NO DISTRESSS NOTED. NO C/O PAIN. WILL CONTINUE TO MONITOR.
[2017-02-06 06:20] LABS: CALCIUM 8.3 mg/dL (8.5-10.1); CARBON DIOXIDE 27.4 mmol/L (21-32); CHLORIDE SERUM 105 mmol/L (98-107); CREATININE SERUM 0.8 mg/dL (0.6-1.0); GLUCOSE SERUM 84 mg/dL (74-106); POTASSIUM SERUM 4.1 mmol/L (3.5-5.1); SODIUM SERUM 138 mmol/L (136-145)
--- NOTE | 2017-02-06 06:49 | NUR ---
CARROLL CARE GIVEN TO PT.
--- NOTE | 2017-02-06 07:45 | NUR ---
A+OX2, CONFUSED, FORGETFUL, NO RESPIRATORY DISTRESS NOTED, IN NO APPARANT PAIN, PULSES MODERATE AND EQUAL [place], TRACE EDEMA BLE, SCDS PRESENT, LUNG SOUNDS DIMINISHED, PER NIGHT NURSE PT TO BE WEENED OFF O2, PT PLACED ON 1.5 L NC, BOWEL SOUNDS ACTIVE, CARROLL CATH DRAINING YELLOW URINE, GENERALIZED WEAKNESS, AIR MATTTRESS PRESENT, DACRAL ULCER WITH OPTIFOAM DRESSING CDI, IV IN RFA WITH NS @ 60 ML/HR, SITE WNL, CA 8.3, WBC 11.4, RBC 3.76, HGB 10.6, HCT 33.
[2017-02-06 08:03] LABS: BASOPHIL % 0.4 % (0-2); PLATELET COUNT 311 x10^3mcL (130-400)
[2017-02-06 08:05] LABS: RED CELL DISTRIBUTION WIDTH 16.7 % (11.5-14.5)
[2017-02-06 09:05] VITALS: BP 117/58
--- NOTE | 2017-02-06 09:27 | NUR ---
PT RESTING IN BED, NO RESPIRATORY DISTRESS NOTED, IN NO APPARANT PAIN, CONFUSED, STATES SHE HAS HALLUCINATIONS AND CURRENTLY SEES A GIRL IN HER ROOM.
--- NOTE | 2017-02-06 10:36 | NUR ---
PT RESTINGIN BED, NO RESPIRATORY DISTRESS NOTED, IN NO APPARANT PAIN.
[2017-02-06] MEDS ORDERED: BACDS PO (11:18)
[2017-02-06] MEDS ORDERED: LAC PO (11:19)
[2017-02-06] MEDS ORDERED: LEVAQUIN750 MG PO (11:20)
[2017-02-06 11:42] VITALS: BP 117/58
--- NOTE | 2017-02-06 12:27 | NUR ---
PT RESTING IN BED, NO RESPIRATORY DISTRESS NOTED, IN NO APPARANT PAIN.
--- NOTE | 2017-02-06 12:47 | NUR ---
PT RESTING IN BED, SITTING STARIGHT UP WHILE EATING LUNCH, NO RESPIRATORY DISTRESS NOTED, IN NO APPARANT PAIN.
--- NOTE | 2017-02-06 13:03 | NUR ---
GAVE REPORT TO PETER ZHU FROM [facility].
--- NOTE | 2017-02-06 13:58 | NUR ---
PT'S DAUGHTER IN LAW BRET LAWSON GAVE CONSENT FOR PT TO BE DISCHARGED AND TRANSFERRED TO [facility], WITNESSED BY RN SHABBIR ROQUE. BRET WAS GIVEN DISCHARGED INFORMATION AND VERBALIZED UNDERSTANDING. PT GIVEN BED BATH, GOWN AND LINENS CHANGED, SACRAL ULCER DRESSING CHANGED WITH OPTIFOAM AND THERAHONEY. NO RESPIRATORY DISTRESS NOTED, IN NO APPARANT PAIN.
--- NOTE | 2017-02-06 14:57 | NUR ---
PT RESTING IN BED, NO RESPIRATORY DISTRESS NOTED, IN NO APPARANT PAIN.
--- NOTE | 2017-02-06 15:47 | NUR ---
PT RESTING IN BED, NO RESPIRATORY DISTRESS NOTED, IN NO APPARANT PAIN, AWAITING TRANSPORT TO [facility].
--- NOTE | 2017-02-06 16:27 | NUR ---
PT OFF THE UNIT [facility]IA [facility] WITH ALL BELONGINGS ESCORTED BY [facility]. PT TO BE TRANSFERRED TO [facility].
== END 2017-02-06 16:34 | DRG 853 ==
LOC: ED 01:13 → IC 04:04 → DU 04:04 → IC 06:04 → DU 15:29 → MU 02-01 04:22
PROVIDERS: Emergency Medicine; Family Medicine; Student in an Organized Health Care Education/Training Program; ADMIT Family Medicine
PROC: 0JB70ZZ Excision of Back Subcutaneous Tissue and Fascia, Open Approach (ICD-10-PCS; principal; 2017-01-30)
DX: A41.9 Sepsis, unspecified organism (principal); G93.41 Metabolic encephalopathy; N17.0 Acute kidney failure with tubular necrosis; E43 Unspecified severe protein-calorie malnutrition; L89.153 Pressure ulcer of sacral region, stage 3; N39.0 Urinary tract infection, site not specified; R65.20 Severe sepsis without septic shock
CPT/HCPCS: 83880; 84439; 94150; J0696; J2001; J2543; J3475; J3490; J7030; J7040; Q0092